=== PATIENT | female | born 1985 | race Caucasian/White ===

== ENCOUNTER 2022-04-14 16:15 | Emergency (ER) | payer BC ==
[2022-04-14] MEDS ORDERED: Acetaminophen 325 MG Tab PO ONE (17:34)
== END 2022-04-14 17:53 | disposition home or self-care (01) ==
LOC: JD.ED 16:15
DX: S99.911A Unspecified injury of right ankle, initial encounter (principal); Z88.0 Allergy status to penicillin; Z88.2 Allergy status to sulfonamides; Z88.8 Allergy status to other drugs, medicaments and biological substances; Z86.16 Personal history of COVID-19; V80.010A Animal-rider injured by fall from or being thrown from horse in noncollision accident, initial encounter; Y93.52 Activity, horseback riding
CPT/HCPCS: 73610-26-RT; 73610-RT; 73630-26-RT; 73630-RT; 99283